=== PATIENT | male | born 1975 | race Caucasian/White ===

== ENCOUNTER 2018-10-13 21:53 | Emergency (ER) | payer MEDICAID, SELFPAY ==
[2018-10-13 21:54] VITALS: BP 146/88; PULSE 105; RESP 18; TEMP 36.7; O2SAT 99; BMI 37.0
--- NOTE | 2018-10-13 23:41 | ED.VISSUMM ---
- ER Visit Summary Date of Service: 10/13/18 Chief Complaint: Dental pain History of Present Illness: The patient is a 43 M with dental pain for the past month. He has been seen in urgent care and was currently on his fourth course of antibiotic. He supposed to see an oral surgeon later this month. Physical Examination: Vital signs unremarkable. Patient sitting upright in bed no acute distress. He is nontoxic appearing. Head neck examination reveals no facial edema or erythema. Intraoral examination was a focal gum abscess just lateral to the left mandibular first molar. There is no trismus. Test Results: [] Emergency Department Course and Treatment: The focal abscess was unroofed with a #18 needle. I did get return of blood in the area did deflate in size. Patient will be given clindamycin 300 mg 4 times a day for the next 10 days. On listing his prior antibiotics it sounds like prior round of clindamycin was not dosed at the correct dosing. He will also be given Dr. Moran's number to see if he can be seen here locally. Treatment Plan: [] Disposition: Discharge Impression: Focal dental abscess This note was generated with [employer] dictation software. It may contain incorrect words, spelling, and punctuation that were not noted in review of the chart prior to signing ED Disposition - Plan for ED Patient: Chief Complaint: Dental Referrals: Alyson Raman MD [Primary Care Provider] -
--- NOTE | 2018-10-13 23:48 | ED.DEP ---
ED Disposition - Plan for ED Patient: Disposition: Home or Assisted Living Chief Complaint: Dental Instructions: Dental Abscess Prescriptions: Clindamycin [Cleocin] 300 mg PO 4X/DAY #80 capsule Referrals: Aj Moran DDS [STAFF PHYSICIAN] - As soon as possible
[2018-10-13 23:50] VITALS: BP 154/95; PULSE 97; RESP 18; TEMP 37.3; O2SAT 96
[2018-10-14] MEDS: Clindamycin HCl 150 MG Capsule 300 MG PO (00:13)
[2018-10-14 00:16] VITALS: BP 154/95; PULSE 97; RESP 18; O2SAT 96
== END 2018-10-14 00:20 | disposition home or self-care (01) ==
LOC: ED 10-14 00:19
PROVIDERS: Emergency Provider Emergency Medicine; Family Provider Pediatrics; PCP Pediatrics
DX: K04.7 Periapical abscess without sinus (principal)
CPT/HCPCS: 41800; 99283